=== PATIENT | male | born 1990 | race Caucasian/White ===

== ENCOUNTER 2023-09-30 16:28 | Emergency (ER) | payer OTHER ==
--- NOTE | 2023-09-30 17:07 | RAD REPORT ---
EXAM DESCRIPTION: CT - Abdomen Pelvis Wo Contrast - 09/30/2023 4:54 pm CLINICAL HISTORY: Abdominal pain COMPARISON: None TECHNIQUE: Computed axial tomography of the abdomen and pelvis was obtained. IV and oral contrast we re not requested. All CT scans are performed using dose optimization technique as appropriate and may include automated exposure control or mA/KV adjustment according to patient size. FINDINGS: The evaluation of solid organs, vessels and bowel is limited secondary to the lack of con trast administration. Small low-density hepatic lesions probably cysts. Spleen, pancreas and adrenals grossly normal. 2.3 centimeter mass extends off of the anterior aspect right kidney Hounsfield unit 15. Additional sm all cyst. Tiny calculus. Moderate left hydronephrosis. Left parapelvic renal cysts. Stranding within the perirenal fat. 6 mill imeter calculus proximal to mid left ureter. 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 15 millim eter sclerosis right ilium. Several smaller areas of sclerosis within the spine. Normal appendix. No evidence diverticulitis. Trace amount of ascites IMPRESSION: 6 millimeter calculus left ureter results in moderate left hydronephrosis Several sclerotic foci within the bones. These can be benign or indicate blastic metastases
[2023-09-30] MEDS ORDERED: MORPHINE 4 MG/ML SYR ONE ×2 (17:20→18:58)
[2023-09-30 17:36] LABS: Absolute Lymphocytes (CBC) 0.7 K/uL (0.7-4.9); Absolute Monocytes 0.7 K/uL (0.1-1.3); Absolute Neutrophil 12.8 K/uL (1.8-8.0); Basophils % 0.2 % (0-1.3); Eosinophils % 0.1 % (0-4.4); Hemoglobin 14.1 g/dL (13.6-17.9); Lymphocytes % 4.7 % (15.3-44.8); MCH 28.4 pg (27.0-35.0); MCHC 33.6 g/dL (32.0-36.0); MCV 84.6 fL (80-100); MPV 7.7 fL (7.6-11.3); Nucleated Red Blood Cells % 0.2 % (0-0); Platelets 218 thou/uL (152-406); RBC Red Blood Cell Count 4.97 M/uL (4.33-5.43); Red Cell Distribution Width 14.7 % (12.1-15.2)
[2023-09-30 17:54] LABS: Albumin 4.1 g/dL (3.4-5.0); Albumin/Globulin Ratio 1.3 (1.1-1.8); Anion Gap 8.9 mEq/L (5.0-15.0); Bilirubin Total 0.3 mg/dL (0.2-1.0); Globulin 3.1 g/dL (2.3-3.5); Potassium 3.9 mEq/L (3.5-5.1); Protein, Total 7.2 g/dL (6.4-8.2)
[2023-09-30] MEDS ORDERED: NA CHLORIDE 0.9% 1,000 ML ONE (18:32)
[2023-09-30 18:57] LABS: Blood Morphology Comment NOT SEEN (NOT SEEN); Platelet Estimate ADEQ; White Blood Cell Scan OK (OK)
[2023-09-30] MEDS ORDERED: MAGNESIUM SULFATE 1 gm IVPB 1 GM/100 ML BAG IV ONE (18:58)
[2023-09-30] MEDS ORDERED: TAMSULOSIN 0.4 MG SR CAP ONE (18:58)
[2023-09-30 19:14] LABS: Specific Gravity 1.013 (1.005-1.030); Sqamous Epithelial None Seen /HPF (None Seen); Urine Bacteria <20 /HPF (<20); Urine Bilirubin NEGATIVE (Negative); Urine Blood 3+ (Negative); Urine Clarity Clear (Clear); Urine Color Colorless (Yellow); Urine Culture Reflex Order NOT NEEDED; Urine Glucose TRACE (Negative); Urine Ketones NEGATIVE (Negative); Urine Microscopic Reflex YN ORDER UMIC; Urine Mucus Slight /HPF (None Seen); Urine Nitrite NEGATIVE (Negative); Urine Protein NEGATIVE (Negative); Urine RBC >50 /HPF (None Seen); Urine Urobilinogen Normal (Normal); Urine WBC <5 /HPF (<5)
[2023-09-30] MEDS ORDERED: HYDROMORPHONE HCL 1 MG/ML INJ ONE (20:31)
--- NOTE | 2023-09-30 20:35 | ER ---
Nurse's Notes [facility] Name: Tru Baires Age: 33 yrs Sex: Male : 1990 Arrival Date: 09/30/2023 Time: 16:28 Bed 3 Private MD: Diagnosis: Calculus of ureter Presentation: 09/29 16:31 Chief complaint: Patient states: he has been having left sided flank pain that started ph this morning. patient reports pain to be a 9/10 on the pain scale at this time. Coronavirus screen: At this time, the client does not indicate any symptoms associated with coronavirus-19. Ebola Screen: No symptoms or risks identified at this time. Risk Assessment: Do you want to hurt yourself or someone else? Patient reports no desire to harm self or others. Onset of symptoms was September 30, 2023. 16:31 Method Of Arrival: EMS: [facility] 16:31 Acuity: YASHIRA 3 16:34 Care prior to arrival: Medication(s) given: Normal saline infusion, 200ml zofran 4 mg, ph toradol 15mg IV initiated. 20 GA, in the right antecubital area. 21:03 Initial Sepsis Screen: Does the patient meet any 2 criteria? No. Patient's initial tm6 sepsis screen is negative. Does the patient have a suspected source of infection? No. Patient's initial sepsis screen is negative. Triage Assessment: 16:33 General: Appears uncomfortable, Behavior is calm, cooperative, appropriate for age. ph Pain: Complains of pain in left flank Pain currently is 9 out of 10 on a pain scale. Pain began gradually, 4 hours ago. Neuro: Level of Consciousness is awake, alert, obeys commands, Oriented to person, place, time, situation. Cardiovascular: Patient's skin is warm and dry. Respiratory: Airway is patent Respiratory effort is even, unlabored, Respiratory pattern is regular, symmetrical. : Reports pain in left flank(s). 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 - Infectious Disease History:: Denies. - Social history:: Smoking status: Patient denies any tobacco usage or history of. - Family history:: not pertinent. Screenin:41 [facility] ED Fall Risk Assessment (Adult) History of falling in the last 3 months, ko1 including since admission No falls in past 3 months (0 pts) Confusion or Disorientation No (0 pts) Intoxicated or Sedated No (0 pts) Impaired Gait No (0 pts) Mobility Assist Device Used No (0 pt) Altered Elimination No (0 pt) Score/Fall Risk Level 0 - 2 = Low Risk Oriented to surroundings, Maintained a safe environment, Educated pt \T\ family on fall prevention, incl call for assistance when getting out of bed, Assessed \T\ reinforced patient's understanding of fall precautions, Provided non-skid footwear, Hourly rounding (assess needs \T\ fall precautionary measures) done. Abuse screen: Denies threats or abuse. Denies injuries from another. Nutritional screening: No deficits noted. Tuberculosis screening: No symptoms or risk factors identified. Assessment: 17:41 General: Appears in no apparent distress. uncomfortable, Behavior is calm, cooperative, ko1 appropriate for age. Pain: Complains of pain in left low back and right low back. Neuro: No deficits noted. Cardiovascular: No deficits noted. Respiratory: No deficits noted. GI: No deficits noted. : No deficits noted. EENT: No deficits noted. Derm: No deficits noted. Musculoskeletal: No deficits noted. 18:41 Reassessment: Patient appears in no apparent distress at this time. Patient and/or ld1 family updated on plan of care and expected duration. Pain level reassessed. 20:39 Reassessment: Patient appears in no apparent distress at this time. Patient and/or tm6 family updated on plan of care and expected duration. Pain level reassessed. Patient is alert, oriented x 3, equal unlabored respirations, skin warm/dry/pink. Vital Signs: 16:31 Weight 61.23 kg; Height 5 ft. 2 in. ; Pain 9/10; ph 17:41 BP 161 / 92; Pulse 54; Resp 16; Pulse Ox 100% ; ko1 18:41 BP 177 / 91; Pulse 71; Resp 18; Pulse Ox 100% on R/A; ld1 20:39 BP 145 / 96; Pulse 68; Pulse Ox 97% on R/A; Pain 4/10; tm6 21:02 BP 143 / 88; Pulse 67; Resp 18; Temp 98(TE); Pulse Ox 95% on R/A; Pain 10; tm6 16:31 Body Mass Index 24.69 (61.23 kg, 157.48 cm) ph 16:31 Pain Scale: Adult ph 20:39 Pain Scale: Adult tm6 21:02 Pain Scale: Adult tm6 ED Course: 16:31 Patient arrived in ED. ph 16:31 Andres Petit MD is Attending Physician. rt 16:33 Triage completed. ph 16:56 CT Abd/Pelvis - Without Contrast In Process Unspecified. EDMS 17:17 Mary Villatoro, RN is Primary Nurse. ko1 17:32 CBC with Diff Sent. ko1 17:32 CMP Sent. ko1 17:41 No provider procedures requiring assistance completed. Inserted saline lock: 20 gauge ko1 in right antecubital area, using aseptic technique. Blood collected. 17:41 Patient has correct armband on for positive identification. Bed in low position. Call ko1 light in reach. Side rails up X 1. Provided Education on: labs/meds. Pulse ox on. NIBP on. Door closed. Noise minimized. Lights dimmed. Warm blanket given. Pillow given. 18:47 Attending Physician role handed off by Andres Petit MD rn 18:47 Kieran Fernandes MD is Attending Physician. rn 19:00 Arm band placed on right wrist. tm6 20:35 Gage Lazo MD is Referral Physician. rn 21:03 IV discontinued, intact, bleeding controlled, No redness/swelling at site. Pressure tm6 dressing applied. Administered Medications: 17:32 Drug: morphine IVP or IV 4 mg IVP once over 4 mins Route: IVP; Infused Over: 4 mins; ko1 Site: right antecubital; 17:47 Follow up: Response: No adverse reaction; Pain is decreased ko1 18:31 Drug: NS 0.9% IV 1000 ml IV at 1000 ml once Route: IV; Rate: 1000 ml; Site: right ko1 antecubital; 20:39 Follow up: IV Status: Completed infusion; IV Intake: 1000ml tm6 19:03 Drug: Magnesium Sulfate IVPB 1 grams IVPB once over 1 hrs Route: IVPB; Infused Over: 1 ko1 hrs; Site: right antecubital; 19:03 Drug: Flomax PO 0.4 mg PO once Route: PO; ko1 19:03 Drug: morphine IVP or IV 4 mg IVP once over 4 mins Route: IVP; Infused Over: 4 mins; ko1 Site: right antecubital; 20:39 Drug: HYDROmorphone IVP 1 mg IVP once Route: IVP; Site: right antecubital; tm6 Medication: 17:41 VIS not applicable for this client. ko1 Intake: 20:39 IV: 1000ml; Total: 1000ml. tm6 Outcome: 20:35 Discharge ordered by . rn 21:02 Discharged to home via wheelchair, with friend, tm6 21:02 Condition: stable 21:02 Discharge instructions given to patient, Instructed on discharge instructions, follow up and referral plans. medication usage, Demonstrated understanding of instructions, follow-up care, medications, Prescriptions given X 3, 21:03 Patient left the ED. tm6 Signatures: Dispatcher [employer] EDMS Kieran Fernandes MD MD rn Hall, Patricia, RN RN Deanna Cordero RN RN [id number] Mary Villatoro RN RN ko1 Andres Petit MD MD rt Gutierrez Perla RN RN tm6
--- NOTE | 2023-09-30 20:35 | EDPHYS ---
Physician Documentation [facility] Name: Tru Baires Age: 33 yrs Sex: Male : 1990 Arrival Date: 09/30/2023 Time: 16:28 Bed 3 Private MD: ED Physician Kieran Fernandes HPI: 09/29 17:51 This 33 yrs old Male presents to ER via EMS with complaints of Flank Pain. rt 17:51 Patient with 1 previous history of kidney stone presents to the ED with acute onset of rt left flank pain starting today consistent with previous episode of kidney stone. Reports nausea that vomiting. Patient received Toradol, Zofran which did improve his nausea but not as pain. Denies other acute complaints at this time, symptoms are moderate in severity, no other aggravating or alleviating factors.. 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 - Infectious Disease History:: Denies. - Social history:: Smoking status: Patient denies any tobacco usage or history of. - Family history:: not pertinent. ROS: 17:51 Constitutional: Negative for fever, chills, and weight loss, Cardiovascular: Negative rt for chest pain, palpitations, and edema, Respiratory: Negative for shortness of breath, cough, wheezing, and pleuritic chest pain, MS/Extremity: Negative for injury and deformity, Skin: Negative for injury, rash, and discoloration, Neuro: Negative for headache, weakness, numbness, tingling, and seizure, 17:51 Abdomen/GI: Positive for abdominal pain, nausea, 17:51 Back: Positive for flank pain, Negative for injury or acute deformity, Exam: 17:51 Constitutional: This is a well developed, well nourished patient who is awake, alert, rt and in no acute distress. Head/Face: Normocephalic, atraumatic. Chest/axilla: Normal chest wall appearance and motion. Nontender with no deformity. No lesions are appreciated. Cardiovascular: Regular rate and rhythm with a normal S1 and S2. No gallops, murmurs, or rubs. Normal PMI, no JVD. No pulse deficits. Respiratory: Lungs have equal breath sounds bilaterally, clear to auscultation and percussion. No rales, rhonchi or wheezes noted. No increased work of breathing, no retractions or nasal flaring. Abdomen/GI: Soft, non-tender, with normal bowel sounds. No distension or tympany. No guarding or rebound. No evidence of tenderness throughout. Skin: Warm, dry with normal turgor. Normal color with no rashes, no lesions, and no evidence of cellulitis. MS/ Extremity: Pulses equal, no cyanosis. Neurovascular intact. Full, normal range of motion. Neuro: Awake and alert, GCS 15, oriented to person, place, time, and situation. Cranial nerves II-XII grossly intact. Motor strength 5/5 in all extremities. Sensory grossly intact. Cerebellar exam normal. Normal gait. Vital Signs: 16:31 Weight 61.23 kg; Height 5 ft. 2 in. ; Pain 9/10; ph 17:41 BP 161 / 92; Pulse 54; Resp 16; Pulse Ox 100% ; ko1 18:41 BP 177 / 91; Pulse 71; Resp 18; Pulse Ox 100% on R/A; ld1 20:39 BP 145 / 96; Pulse 68; Pulse Ox 97% on R/A; Pain 4/10; tm6 21:02 BP 143 / 88; Pulse 67; Resp 18; Temp 98(TE); Pulse Ox 95% on R/A; Pain 1/10; tm6 16:31 Body Mass Index 24.69 (61.23 kg, 157.48 cm) ph 16:31 Pain Scale: Adult ph 20:39 Pain Scale: Adult tm6 21:02 Pain Scale: Adult tm6 MDM: 16:31 Patient medically screened. rt 20:19 Differential diagnosis: nephrolithiasis, pyelonephritis, UTI. Data reviewed: vital rn signs, nurses notes, lab test result(s), radiologic studies, CT scan, and as a result, I will discharge patient. Counseling: I had a detailed discussion with the patient and/or guardian regarding the historical points, exam findings, and any diagnostic results supporting the discharge/admit diagnosis, lab results, radiology results, the need for outpatient follow up, to return to the emergency department if symptoms worsen or persist or if there are any questions or concerns that arise at home. Response to treatment: the patient's symptoms have markedly improved after treatment, and as a result, I will discharge patient. Special discussion: I discussed with the patient/guardian in detail that at this point there is no indication for admission to the hospital. It is understood, however, that if the symptoms persist or worsen the patient needs to return immediately for re-evaluation. 09/29 16:33 Order name: CBC with Diff; Complete Time: 19:30 rt 09/29 16:33 Order name: CMP; Complete Time: 18:14 rt 09/29 16:33 Order name: Urinalysis w/ reflexes; Complete Time: 19:30 rt 09/29 18:58 Order name: CBC Smear Scan; Complete Time: 19:30 EDMS 09/29 16:33 Order name: CT Abd/Pelvis - Without Contrast; Complete Time: 17:12 rt 09/29 16:33 Order name: IV Saline Lock; Complete Time: 16:35 rt 09/29 16:33 Order name: Labs collected and sent; Complete Time: 17:18 rt Administered Medications: 17:32 Drug: morphine IVP or IV 4 mg IVP once over 4 mins Route: IVP; Infused Over: 4 mins; ko1 Site: right antecubital; 17:47 Follow up: Response: No adverse reaction; Pain is decreased ko1 18:31 Drug: NS 0.9% IV 1000 ml IV at 1000 ml once Route: IV; Rate: 1000 ml; Site: right ko1 antecubital; 20:39 Follow up: IV Status: Completed infusion; IV Intake: 1000ml tm6 19:03 Drug: Magnesium Sulfate IVPB 1 grams IVPB once over 1 hrs Route: IVPB; Infused Over: 1 ko1 hrs; Site: right antecubital; 19:03 Drug: Flomax PO 0.4 mg PO once Route: PO; ko1 19:03 Drug: morphine IVP or IV 4 mg IVP once over 4 mins Route: IVP; Infused Over: 4 mins; ko1 Site: right antecubital; 20:39 Drug: HYDROmorphone IVP 1 mg IVP once Route: IVP; Site: right antecubital; tm6 Disposition Summary: 09/30/23 20:35 Discharge Ordered Notes: Location: Home rn Problem: new rn Symptoms: have improved rn Condition: Stable rn Diagnosis - Calculus of ureter rn Followup: rn - With: Gage Lazo MD - When: As needed - Reason: Recheck today's complaints, Re-evaluation by your physician Discharge Instructions: - Discharge Summary Sheet rn - Kidney Stones rn - Renal Colic rn - Dietary Guidelines to Help Prevent Kidney Stones rn Forms: - Medication Reconciliation Form rn - Antibiotic [employer] intern - Prescription Opioid Use rn - Patient Portal Instructions rn - Leadership Thank You Letter rn - Work release form tm6 Prescriptions: - ondansetron 4 mg Oral Tablet,disintegrating - take 1 tablet ORAL route every 8 hours As needed; 10 tablet; Refills: 0, rn Product Selection Permitted - tamsulosin 0.4 mg Oral capsule - take 1 capsule ORAL route every 24 hours As needed Stop once you feel that you rn have passed the stone; 10 capsule; Refills: 0, Product Selection Permitted - Tramadol 50 mg Oral tablet - take 1 tablet ORAL route every 8 hours as needed; 15 tablet; Refills: 0, rn Product Selection Permitted Signatures: Dispatcher [employer] Kieran Winchester MD MD rn Hall, Patricia RN RN ph Mary Villatoro RN RN ko1 Andres Petit MD MD rt Gutierrez Perla RN RN tm6
[2023-10-01 03:45] VITALS: BP 143/88; TEMP 98; O2SAT 95
== END 2023-09-30 21:03 | disposition home or self-care (01) ==
LOC: ER 16:28
DX: N20.1 Calculus of ureter (principal); Z87.442 Personal history of urinary calculi
CPT/HCPCS: 85025; 81001; 36415; 80053; 74176; J3475; J1170; J7030